=== PATIENT | female | born 1925 | race Two or more races ===

== ENCOUNTER 2016-10-10 11:58 | Inpatient (IN) | payer MEDICARE ==
[~2016-10-10] VITALS: Ht 149.9 cm; Wt 42.2 kg
[2016-10-10 13:00] LABS: BASOPHILS % (AUTO) 0.7 % (0.0-2.0); DIFF TOTAL % 100 %; EOSINOPHILS % (AUTO) 0.3 % (0.0-6.0); HEMATOCRIT 39 % (33-45); HEMOGLOBIN 12.6 g/dL (11.5-14.8); LYMPHOCYTES # (AUTO) 1.3 /CMM (0.8-4.8); LYMPHOCYTES % (AUTO) 20.1 % (20.0-44.0); MEAN CORPUSCULAR HEMOGLOBIN 29 PG (26.0-33.0); MEAN CORPUSCULAR HGB CONC 33 g/dl (31.0-36.0); MEAN CORPUSCULAR VOLUME 90 fL (82-100); MONOCYTES # (AUTO) 0.5 /CMM (0.1-1.30); MONOCYTES % (AUTO) 8.3 % (2.0-12.0); NEUTROPHILS # (AUTO) 4.5 /CMM (1.8-8.9); NEUTROPHILS % (AUTO) 70.6 % (43.0-81.0); PLATELET COUNT (AUTO) 186 /CMM (150-450); RED BLOOD CELL COUNT(AUTO) 4.28 MIL/uL (4.0-5.2); WHITE BLOOD COUNT (AUTO) 6.3 K/uL (4.3-11.0)
[2016-10-10 13:17] LABS: ADD UA MICROSCOPIC YES; KETONES,URINE Negative (NEGATIVE); LEUKOCYTE ESTERASE ,URINE Small (NEGATIVE); PH,URINE 6.5 (5.0-8.0)
[2016-10-10 13:18] LABS: ADD URINE CULTURE NO; RBC,URINE 0-2 /HPF (0-2); WBC,URINE 0-2 /HPF (0-3)
[2016-10-10 13:25] LABS: CALCIUM, SERUM 8.9 mg/dL (8.5-10.1); CREATININE 0.7 mg/dL (0.6-1.3)
[2016-10-10] MEDS ORDERED: TEMA7.5C12 PO (13:50)
[2016-10-10] MEDS ORDERED: CHOL100044 PO (13:50)
[2016-10-10] MEDS ORDERED: LUTE10TA PO (13:52)
[2016-10-10] MEDS ORDERED: CBD OIL PO (13:57)
[2016-10-10] MEDS ORDERED: THC PO (13:57)
[2016-10-10 15:00] VITALS: BP 131/67
[2016-10-10] MEDS ORDERED: MAG HYDROX/AL HYDROX/SIMETH 30 ML UDC PO PRN (15:30)
[2016-10-10] MEDS ORDERED: MAGNESIUM HYDROXIDE 30 ML UDC PO PRN (15:30)
[2016-10-10] MEDS ORDERED: ACETAMINOPHEN 325 MG TABLET PO PRN (15:30)
[2016-10-10 16:00] VITALS: BP 131/67
[2016-10-10] MEDS: LORAZEPAM 0.5 MG TABLET PO PRN (17:39)
[2016-10-10 20:00] VITALS: BP 128/58
[2016-10-11 08:00] VITALS: BP 151/58
[2016-10-11 08:04] LABS: ALBUMIN 3.2 g/dL (3.4-5.0); BILIRUBIN,TOTAL 0.6 mg/dL (0.2-1.0); CALCIUM, SERUM 8.6 mg/dL (8.5-10.1); CREATININE 0.8 mg/dL (0.6-1.3); TOTAL PROTEIN, SERUM 6.4 g/dL (6.4-8.2)
[2016-10-11] MEDS: MULTIVITAMINS W-MINERALS 1 TAB TABLET PO SCH (08:43)
[2016-10-11] MEDS: CHOLECALCIFEROL 1,000 UNIT TABLET (VIT D3) PO SCH (08:43)
[2016-10-11] MEDS: SERTRALINE HCL 25 MG TABLET PO SCH (12:52)
[2016-10-11 16:00] VITALS: BP 134/73
[2016-10-11 20:00] VITALS: BP 111/54
[2016-10-11] MEDS: QUETIAPINE FUMARATE 25 MG TABLET PO SCH (22:05)
[2016-10-11] MEDS: CIPROFLOXACIN HCL 250 MG TABLET PO SCH (22:05)
[2016-10-11] MEDS: TEMAZEPAM 7.5 MG CAPSULE PO PRN (22:05)
[2016-10-12] MEDS: SERTRALINE HCL 25 MG TABLET PO SCH (08:41)
[2016-10-12] MEDS: CHOLECALCIFEROL 1,000 UNIT TABLET (VIT D3) PO SCH (08:41)
[2016-10-12] MEDS: CIPROFLOXACIN HCL 250 MG TABLET PO SCH ×2 (08:41→20:18)
[2016-10-12] MEDS: MULTIVITAMINS W-MINERALS 1 TAB TABLET PO SCH (08:41)
[2016-10-12] MEDS: LORAZEPAM 0.5 MG TABLET PO PRN (08:43)
[2016-10-12 09:29] VITALS: BP 138/76
[2016-10-12 16:20] VITALS: BP 131/72
[2016-10-12 17:04] LABS: CHOLESTEROL 220 mg/dL (<200); HDL CHOLESTEROL 65 mg/dL (40-60); LDL 138 mg/dL (0-99); TRIGLYCERIDES 60 mg/dL (30-150)
[2016-10-12 19:40] VITALS: BP 131/69
[2016-10-12] MEDS: QUETIAPINE FUMARATE 25 MG TABLET PO SCH (21:21)
[2016-10-12] MEDS: TEMAZEPAM 7.5 MG CAPSULE PO PRN (22:00)
[2016-10-13 08:00] VITALS: BP 160/71
[2016-10-13] MEDS: CHOLECALCIFEROL 1,000 UNIT TABLET (VIT D3) PO SCH (08:19)
[2016-10-13] MEDS: MULTIVITAMINS W-MINERALS 1 TAB TABLET PO SCH (08:19)
[2016-10-13] MEDS: CIPROFLOXACIN HCL 250 MG TABLET PO SCH ×2 (08:19→21:00)
[2016-10-13] MEDS: SERTRALINE HCL 25 MG TABLET PO SCH (08:19)
[2016-10-13 16:00] VITALS: BP 107/73
[2016-10-13 20:01] VITALS: BP 157/94
[2016-10-13] MEDS: TEMAZEPAM 7.5 MG CAPSULE PO PRN (22:16)
[2016-10-13] MEDS: QUETIAPINE FUMARATE 25 MG TABLET PO SCH (22:16)
[2016-10-14 00:33] VITALS: BP 108/69
[2016-10-14 08:00] VITALS: BP 121/69
[2016-10-14] MEDS: CIPROFLOXACIN HCL 250 MG TABLET PO SCH ×2 (13:54→21:15)
[2016-10-14] MEDS: MULTIVITAMINS W-MINERALS 1 TAB TABLET PO SCH (13:54)
[2016-10-14] MEDS: CHOLECALCIFEROL 1,000 UNIT TABLET (VIT D3) PO SCH (13:54)
[2016-10-14] MEDS: SERTRALINE HCL 25 MG TABLET PO SCH (13:55)
[2016-10-14 16:00] VITALS: BP 123/56
[2016-10-14 19:55] VITALS: BP 155/76
[2016-10-14 19:56] VITALS: BP 115/60
[2016-10-14] MEDS: TEMAZEPAM 7.5 MG CAPSULE PO PRN (21:15)
[2016-10-14] MEDS: QUETIAPINE FUMARATE 25 MG TABLET PO SCH (21:15)
[2016-10-15 08:10] VITALS: BP 143/67
[2016-10-15] MEDS: SERTRALINE HCL 25 MG TABLET PO SCH (09:00)
[2016-10-15] MEDS: CIPROFLOXACIN HCL 250 MG TABLET PO SCH ×2 (09:00→21:19)
[2016-10-15] MEDS: CHOLECALCIFEROL 1,000 UNIT TABLET (VIT D3) PO SCH (09:00)
[2016-10-15] MEDS: MULTIVITAMINS W-MINERALS 1 TAB TABLET PO SCH (09:00)
[2016-10-15 16:13] VITALS: BP 130/71
[2016-10-15 20:09] VITALS: BP 129/56
[2016-10-15] MEDS: QUETIAPINE FUMARATE 25 MG TABLET PO SCH (21:19)
[2016-10-16 08:00] VITALS: BP 118/59
[2016-10-16] MEDS: MULTIVITAMINS W-MINERALS 1 TAB TABLET PO SCH (09:27)
[2016-10-16] MEDS: CHOLECALCIFEROL 1,000 UNIT TABLET (VIT D3) PO SCH (09:27)
[2016-10-16] MEDS: CIPROFLOXACIN HCL 250 MG TABLET PO SCH (09:27)
[2016-10-16] MEDS: SERTRALINE HCL 25 MG TABLET PO SCH (09:27)
== END 2016-10-16 14:45 | DRG 880 ==
LOC: ER 11:59 → GPS 14:03
PROVIDERS: ADMIT Psychiatry & Neurology Psychosomatic Medicine; ATTEND Internal Medicine
DX: F41.9 Anxiety disorder, unspecified (principal); F02.80 Dementia in other diseases classified elsewhere, unspecified severity, without behavioral disturbance, psychotic disturbance, mood disturbance, and anxiety; N39.0 Urinary tract infection, site not specified; F29 Unspecified psychosis not due to a substance or known physiological condition; Z73.6 Limitation of activities due to disability; E78.5 Hyperlipidemia, unspecified; G30.9 Alzheimer's disease, unspecified; I10 Essential (primary) hypertension; F32.9 Major depressive disorder, single episode, unspecified
CPT/HCPCS: 36415; 71010-TC; 80048-TC; 80053-TC; 80061-TC; 81000-TC; 82962-TC; 85025-TC; 87081-TC; A4606; Z7610